=== PATIENT | male | born 1965 | race African-American/Black ===

== ENCOUNTER 2016-10-09 11:07 | Emergency (ER) | payer MEDICAID ==
[2016-10-09] MEDS ORDERED: diphenhydrAMINE HCL 50 MG/ML VIAL IV ONE ×2 (11:26→12:42)
[2016-10-09] MEDS ORDERED: NORMAL SALINE 1,000 ML IV ONE (11:26)
[2016-10-09] MEDS ORDERED: KETOROLAC TROMETHAMINE 30 MG/ML VIAL IV ONE (11:26)
[2016-10-09] MEDS ORDERED: METOPROLOL TARTRATE 1 MG/ML AMPUL IV ONE ×2 (11:27→11:32)
[2016-10-09] MEDS ORDERED: METOCLOPRAMIDE HCL 5 MG/ML VIAL IV ONE ×2 (11:27→12:42)
[2016-10-09] MEDS ORDERED: METOCLOPRAMIDE HCL 5 MG/ML VIAL ONE ×2 (11:32→12:48)
[2016-10-09] MEDS ORDERED: diphenhydrAMINE HCL 50 MG/ML VIAL ONE ×2 (11:32→12:47)
[2016-10-09] MEDS ORDERED: KETOROLAC TROMETHAMINE 30 MG/ML VIAL ONE (11:32)
--- NOTE | 2016-10-09 11:51 | ERNOTE ---
Medical Problem HPI - Narrative Date of Service: 10/09/16 - General Chief Complaint: General Assessment Time Seen by Provider: 10/09/16 11:18 Source: patient Exam Limitations: no limitations - Immun/Allergies/Home Medications Immunizations: IMMUNIZATION HX Immunizations Up to Date Yes History of Influenza Vaccine No Hx Pneumococcal Vaccination No Allergies/Adverse Reactions: Allergies Penicillins Allergy (Verified 10/09/16 11:16) Home Medications: HOME MEDICATIONS Amlodipine Besylate 10 mg PO DAILY 05/08/16 [Last Taken Unknown] Gabapentin [Neurontin] 600 mg PO QID 05/08/16 [Last Taken Unknown] Lisinopril [Zestril] 40 mg PO BID 05/08/16 [Last Taken Unknown] Simvastatin [Zocor] 40 mg PO HS 05/08/16 [Last Taken Unknown] Aspirin [Aspirin EC] 81 mg PO DAILY 10/09/16 [Last Taken Unknown] Ciprofloxacin HCl/Dexameth [Ciprodex Otic Suspension] 1 drop LEFT EAR QID #1 bottle 10/09/16 [Last Taken Unknown] - History of Present History Narrative: Pt. comes in with c/o L temporal and occipital headache that radiates from neck , L ear pain, dizziness, and blurred vision that worsens with pressure on his neck. Pt. denies any previous hx of head injury or migraines but does have a hx of HTN. Pt. denies any CP, NVD, SOB, recent illness, rhinorrhea, sore throat , fever, chills, alleviating factors, or prehospital treatment. Review of Systems - Review of Systems Constitutional: Present: no symptoms reported. Absent: fever, chills, weakness , fatigue, malaise EYE: Present: blurred vision, vision changes. Absent: double vision ENT: Present: ear pain - L. Absent: nose congestion, nasal drainage, sore throat Respiratory: Present: no symptoms reported. Absent: shortness of breath, cough , wheezing Cardiology: Present: no symptoms reported. Absent: chest pain, palpitations, edema Gastrointestinal/Abdominal: Present: no symptoms reported. Absent: nausea, vomiting, diarrhea Genitourinary: Present: no symptoms reported Musculoskeletal: Present: no symptoms reported. Absent: back pain, joint pain Skin: Present: no symptoms reported. Absent: rash, change in color Neurological: Present: headache, dizziness/light-headedness. Absent: weakness, numbness, tingling All Other Systems: All systems neg except as marked - Patient's Past Medical History Patient History - Medical: Chronic Pain Patient History - Cardiac/Respiratory: Hypertension Patient History - Cancer: No Hx of Cancer Patient History - Surgical Procedures: Back Surgery, Other - Social History Living Situations: home Psych History: No pertinent hx Smoking Status: Current every day smoker Alcohol Use: none Drug Use: none - Immunizations Immunizations Up to Date: Yes Hx Pneumococcal Vaccination: No History of Influenza Vaccine: No Physical Exam - Physical Exam General Appearance: Present: wd/wn, alert, no apparent distress Eye Exam: PERRL: bilateral, EOMI: bilateral, Sclera injection: bilateral Ears, Nose, Throat: Present: normal except -, abnormal TM (L) - eustacian tube edema and erythema unable to visualize TM, nasal congestion, normal pharynx Respiratory: Present: no respiratory distress, normal breath sounds, no accessory muscle use, chest nontender, lungs clear Cardiovascular/Chest: Present: regular rate, rhythm, no murmur, normal peripheral pulses Gastrointestinal/Abdominal: Present: normal bowel sounds, nontender, nondistended, soft, no organomegaly Back Exam: Present: normal inspection, normal range of motion, no CVA tenderness , no vertebral tenderness. Absent: decreased range of motion, muscle spasm Extremity Exam: Present: normal inspection, non-tender, normal range of motion, no edema Neurological Exam: Present: alert, oriented, normal mood/affect, no motor/ sensory deficits, stock checker II-XII nml as tested, normal cerebellar test Skin Exam: Present: normal color, warm/dry. Absent: pallor, skin rash ED Progress - Date and Time Seen: Date and Time: 10/09/16 12:56 Pt. sleeping comfortable but when awoken pt. states taht pain is 10/10 and not improved at this time. Pt. heart rate and blood pressure improved with treatment of pain at this time. Will attempt one more dose of pain medication to see if it changes pt. answer to pain level. 10/09/16 12:58 Feel that this could be migraine secondary to otitis externa 10/09/16 13:19 Pt. still states that pain is elevated and discussed with Dr Blanca and she recommends sending pt. home to take Ibuprofen and Tylenol for pain with benedryl and having him follow up with his PCP. - Results and Orders Patient's Lab Results:: I have reviewed the patient's lab results. - Vital Signs Patient's Vital Signs:: I have reviewed the patient's vital signs. Vital Signs: Vital Signs 10/09/16 11:11 Temperature 37.1 C Pulse Rate 108 H Respiratory 18 Rate Blood Pressure 181/104 O2 Sat by Pulse 99 Oximetry - EKG EKG: nonspecific ST T wave changes, other - Sinus rhythm no acute EKG read: Reviewed by me EKG Comments: Interpreted by Dr Blanca - X-Ray X-Ray #1 X-Ray: chest Interpretation: Reviewed by me X-ray Comments: no acute - CT/Ultrasound CT/Ultrasound Narrative: Head CT wityh out any acute intracranial pathology. - Progress/Reassessment Chief Complaint: General Assessment Departure - Departure Clinical Impression: Migraine Qualifiers: Migraine type: without aura Status migrainosus presence: without status migrainosus Intractability: intractable Qualified Code(s): G43.019 - Migraine without aura, intractable, without status migrainosus Otitis externa Qualifiers: Otitis externa type: unspecified type Laterality: left Chronicity: acute Qualified Code(s): H60.502 - Unspecified acute noninfective otitis externa, left ear Disposition: Home self-care Condition: Good Instructions: Otitis Externa, [id number], Recurrent Migraine Headache, Easy- to-Read Additional Instructions: Please take Tylenol and Ibuprofen every six hours for pain with 25mg benedryl. Please follow up with primary provider in 2-3 days. Prescriptions: Ciprofloxacin HCl/Dexameth [Ciprodex Otic Suspension] 1 drop LEFT EAR QID #1 bottle
[2016-10-09 11:56] LABS: Hematocrit 52.9 % (42.0-52.0); Mean Cell Volume 92.3 fl (78-100); Mean Corpuscular Hemoglobin 31.4 pg (27-31); Mean Platelet Volume 10.2 fl (6.0-9.5); Neutrophil # 5.1 K/mm3 (1.3-6.0); Neutrophil % 56.9 % (42-75.0); Platelet Count 232 K/mm3 (150-450); Red Blood Count 5.73 M/mm3 (4.7-6.0); Red Cell Distribution Width 13.2 % (11.5-14.0); White Blood Count 8.9 K/mm3 (4.0-10.5)
[2016-10-09 12:09] LABS: Urine Bilirubin Negative (NEGATIVE); Urine Ketone Negative (NEGATIVE); Urine Nitrite Negative (NEGATIVE); Urine Protein 15 mg/dL (NEGATIVE); Urine Specific Gravity 1.025 SP.GR. (1.005-1.030); Urine Urobilinogen Normal (NORMAL)
[2016-10-09 12:12] LABS: ALT 63 U/L (19-67); AST 46 U/L (0-48); Alkaline Phosphatase * 122 U/L (50-170); Anion Gap 15.2 mmol/L (6.8-13.8); BUN/Creatinine Ratio 8.4 (9.0-21.6); Bilirubin, Total 0.4 mg/dL (0.0-1.1); Blood Urea Nitrogen 9 mg/dL (6-23); Ca. Corrected For Albumin 8.8 mg/dL (8.4-10.2); Calcium * 9.1 mg/dL (7.9-10.9); Carbon Dioxide 25.2 mmol/L (24-32.6); Chloride 103 mmol/L (97-106); Glucose * 181 mg/dL (70-110); Potassium 3.4 mmol/L (3.4-4.6); Sodium 140 mmol/L (132-142); Total Protein 8.5 gm/dL (6.2-8.2)
[2016-10-09 12:16] LABS: Urine Appearance Clear; Urine Bacteria None Seen; Urine Blood 10 /ul (NEGATIVE); Urine Color Yellow; Urine RBC 0-5 /hpf (0-5); Urine WBC 0-5 /hpf (0-5)
[2016-10-09 12:38] LABS: Cocaine Ur Negative (NEGATIVE); Urine Barbiturate Negative (NEGATIVE); Urine Benzodiazepines Negative (NEGATIVE); Urine Opiates Negative (NEGATIVE); Urine PCP Negative (NEGATIVE); Urine THC Negative (NEGATIVE)
[2016-10-09] MEDS ORDERED: NALBUPHINE HCL 20 MG/ML AMPUL IV ONE (12:42)
[2016-10-09] MEDS ORDERED: NALBUPHINE HCL 20 MG/ML AMPUL ONE (12:48)
[2016-10-09 12:53] LABS: Hemoglobin A1C 5.9 % (4.00-6.0)
[2016-10-09 13:42] VITALS: BP 148/80
== END 2016-10-09 13:36 | disposition home or self-care (01) ==
LOC: ER 11:07
DX: G43.019 Migraine without aura, intractable, without status migrainosus (principal); H60.502 Unspecified acute noninfective otitis externa, left ear; Z72.0 Tobacco use; G89.29 Other chronic pain; I10 Essential (primary) hypertension
CPT/HCPCS: 36415; 70450; 71020; 80053; 80307; 81001; 83036; 85025; 93005; 96374; 96375; 99284; G0481

== ENCOUNTER 2016-11-15 08:33 | Inpatient (IN) | payer MEDICAID ==
--- NOTE | 2016-11-15 09:35 | ERNOTE ---
GI Bleeding/Rectal Pain ER Presenting Symptoms: dark/tarry stools Time Seen by Provider: 11/15/16 09:04 Source: patient Immunizations: IMMUNIZATION HX Immunizations Up to Date Yes History of Influenza Vaccine No Hx Pneumococcal Vaccination No Allergies/Adverse Reactions: Allergies Penicillins Allergy (Verified 11/15/16 09:19) Home Medications: HOME MEDICATIONS Amlodipine Besylate 10 mg PO DAILY 05/08/16 [Last Taken Unknown] Gabapentin [Neurontin] 600 mg PO QID 05/08/16 [Last Taken Unknown] Lisinopril [Zestril] 40 mg PO BID 05/08/16 [Last Taken Unknown] Simvastatin [Zocor] 40 mg PO HS 05/08/16 [Last Taken Unknown] Aspirin [Aspirin EC] 81 mg PO DAILY 10/09/16 [Last Taken Unknown] Narrative: Patient states that 3 days ago he started to develop black tarry stools. Actually one day or so ago he started developing epigastric abdominal pain and now has black loose stools. Patient now complains of moderate to severe epigastric abdominal pain and continues to have black tarry stools. Timing: intermittent Quality/Severity: Present: moderate Nausea/Vomiting: Present: none Abdominal Pain: Present: epigastric Associated Symptoms: Reports: black stools, tarry stools Review of Systems - Review of Systems Constitutional: Present: See HPI EYE: Present: no symptoms reported ENT: Present: no symptoms reported Respiratory: Present: no symptoms reported Cardiology: Present: no symptoms reported Gastrointestinal/Abdominal: Present: diarrhea, abdominal pain Genitourinary: Present: no symptoms reported Musculoskeletal: Present: no symptoms reported Skin: Present: no symptoms reported Neurological: Present: no symptoms reported Endocrine: Present: no symptoms reported Hematologic/Lymphatic: Present: no symptoms reported Psych: Present: no symptoms reported - Patient's Past Medical History Patient History - Medical: Chronic Pain Patient History - Cardiac/Respiratory: COPD, Hypertension, Hyperlipidemia Patient History - Cancer: No Hx of Cancer Patient History - Surgical Procedures: Back Surgery, Other Patient History - Other: None - Social History Living Situations: home Psych History: No pertinent hx Smoking Status: Current every day smoker Have you smoked in the past 12 months: Yes Alcohol Use: none Drug Use: none - Immunizations Immunizations Up to Date: Yes Hx Pneumococcal Vaccination: No History of Influenza Vaccine: No Physical Exam - Physical Exam General Appearance: Present: wd/wn, alert, moderate distress Eye Exam: Normal inspection: bilateral, PERRL: bilateral Ears, Nose, Throat: Present: normal ENT inspection, H, normal pharynx Neck: Present: normal inspection, nontender Respiratory: Present: no respiratory distress, normal breath sounds, no accessory muscle use, chest nontender, lungs clear Cardiovascular/Chest: Present: regular rate, rhythm, no murmur, normal peripheral pulses Gastrointestinal/Abdominal: Present: normal bowel sounds, nondistended, soft, tenderness Rectal Exam: Present: deferred Back Exam: Present: normal inspection, normal range of motion Extremity Exam: Present: normal inspection, non-tender, no edema, normal range of motion Neurological Exam: Present: alert, oriented, normal mood/affect Skin Exam: Present: normal color, warm/dry Lymphatic Exam: Present: no adenopathy ED Progress - Results and Orders Patient's Lab Results:: I have reviewed the patient's lab results. - Vital Signs Patient's Vital Signs:: I have reviewed the patient's vital signs. Vital Signs: Vital Signs 11/15/16 11/15/16 09:14 09:26 Temperature 37.1 C Pulse Rate 111 H 95 Respiratory 20 18 Rate Blood Pressure 122/91 148/86 O2 Sat by Pulse 100 100 Oximetry - X-Ray X-Ray #1 X-Ray: abdomen Interpretation: Reviewed by me - Progress/Reassessment Chief Complaint: GI Bleed Progress Note-Subjective: 11/15/16 11:40 Pt had a differential diagnosis of PUD, Acute gastritis, Duodenal ulcer, GERD - Transfer of Care Expected Disposition: Admit Plan - Plan Plan: Patient will be taken directly from the ER to the OR for an EGD and probable cauterization of a gastric ulcer. As the patient has lost over 30 that is blood in just 1 month 2 units of packed red blood cells will be given to him as well as Protonix bolus and a Protonix push. Discussed the case with both Dr. Selby and Dr. De Leon and patient will likely need to be cauterized and they have agreed to undertake this procedure. Patient will then be taken to the ICU from the OR and monitored for any possible further drop in hemoglobin. Patient will be admitted to Dr. Myrtle Gaona and Dr. De Leon consult for surgical consideration. Departure Clinical Impression: GI bleed - Departure Disposition: [facility] Condition: Critical - Critical Care Total Time (mins): 50 Critical Care: Patient required 2 units of packed red blood cells while in the ED as well as Protonix bolus and a Protonix drip. Patient will go from the ER to the OR for probable cauterization of a gastric ulcer.
[2016-11-15 09:45] LABS: Hematocrit 34.6 % (42.0-52.0); Hemoglobin 11.6 gm/dL (13.5-18.0); Mean Cell Volume 93.5 fl (78-100); Mean Corpuscular Hemoglobin 31.4 pg (27-31); Mean Corpuscular Hgb Conc 33.5 g/dl (32-36); Mean Platelet Volume 10.9 fl (6.0-9.5); Neutrophil # 7.7 K/mm3 (1.3-6.0); Neutrophil % 65.8 % (42-75.0); Platelet Count 184 K/mm3 (150-450); Red Cell Distribution Width 13.6 % (11.5-14.0); White Blood Count 11.7 K/mm3 (4.0-10.5)
[2016-11-15 09:53] LABS: INR 1.05 INR (0.90-1.10); Partial Thrombolplastin Time 24.7 Seconds (24-32); Prothrombin Time (Patient) 10.9 Seconds (9.4-11.4)
[2016-11-15 09:56] LABS: Albumin * 3.3 gm/dl (3.4-5.0); Anion Gap 14.4 mmol/L (6.8-13.8); BUN/Creatinine Ratio 33.3 (9.0-21.6); Bilirubin, Total 0.5 mg/dL (0.0-1.1); Ca. Corrected For Albumin 8.6 mg/dL (8.4-10.2); Calcium * 8.4 mg/dL (7.9-10.9); Carbon Dioxide 23.8 mmol/L (24-32.6); Potassium 4.2 mmol/L (3.4-4.6); Total Protein 6.7 gm/dL (6.2-8.2)
[2016-11-15] MEDS ORDERED: PANTOPRAZOLE SODIUM 80 MG in NORMAL SALINE 100 ML IV ONE ×2 (10:48→10:53)
[2016-11-15] MEDS: PANTOPRAZOLE SODIUM 40 MG in NORMAL SALINE 100 ML IV SCH ×4 (12:01→21:59)
--- NOTE | 2016-11-15 12:02 | CONS ---
[facility] - General Date of Service: 11/15/16 Narrative: 51 year old black male presents with black tarry stools since friday. He previously had a hemoglobin of 18 and it is now 11. He is hemodynamically stable. He takes NSAIDS. Blood has been ordered in the ER and a protonix drip is started. He complains of epigastric discomfort. He tried to drink some water this morning and threw it up. Source: patient, RN/MD Exam Limitations: no limitations - History of Present Illness Allergies/Adverse Reactions: Allergies Penicillins Allergy (Verified 11/15/16 09:19) Home Medications: Home Medications Medication Instructions Recorded Last Taken Amlodipine Besylate 10 mg PO DAILY 05/08/16 Unknown Gabapentin [Neurontin] 600 mg PO QID 05/08/16 Unknown Lisinopril [Zestril] 40 mg PO BID 05/08/16 Unknown Simvastatin [Zocor] 40 mg PO HS 05/08/16 Unknown Aspirin [Aspirin EC] 81 mg PO DAILY 10/09/16 Unknown - Patient's Past Medical History Patient History - Medical: Chronic Pain Patient History - Cardiac/Respiratory: COPD, Hypertension, Hyperlipidemia Patient History - Cancer: No Hx of Cancer Patient History - Surgical Procedures: Back Surgery, Other Patient History - Other: None - Social History Living Situations: home Psych History: No pertinent hx Smoking Status: Current every day smoker Have you smoked in the past 12 months: Yes Alcohol Use: none Drug Use: none - Immunizations Immunizations Up to Date: Yes Hx Pneumococcal Vaccination: No History of Influenza Vaccine: No Review of Systems - Review of Systems Abdominal: Present: Abdominal Pain - epigastric Misc: All systems neg except as marked Physical Examination - Exam Vital Signs: Vital Signs - Last Taken Temp 37.1 C 11/15/16 09:14 Pulse 88 11/15/16 11:07 Resp 14 11/15/16 11:07 BP 138/83 11/15/16 11:07 Pulse Ox 97 11/15/16 11:07 Constitutional: Present: Alert, Oriented x3, Cooperative, Well developed, Well nourished, No distress ENT Exam: Present: normal ENT inspection Eye Exam: bilateral eye: normal inspection Neck: Present: non-tender, normal inspection, trachea midline Respiratory: Present: lungs clear, normal breath sounds, no respiratory distress Cardiovascular/Chest: Present: regular rate, rhythm, no murmur Abdomen: Present: Normal bowel sounds, soft, nondistended, no hepatospenomegaly , no masses, tender - Asin epigastrium Extremity: Present: normal inspection Skin Exam: Present: warm/dry Neurologic: Present: no motor/sensory deficits - Assessments/Findings (1) GI bleed Diagnosis(s): Suspect this to be an upper GI bleed and recommend EGD. The options, risks, and benefits were reviewed with the patient. He seems to understand, asks appropriate questions, and desires to proceed. Problem: Acute Qualifiers: GI bleed type/associated pathology: gastric ulcer Qualified Code(s): K25.4 - Chronic or unspecified gastric ulcer with hemorrhage
[2016-11-15] MEDS ORDERED: RINGERS SOLUTION,LACTATED 1,000 ML IV ONE (12:20)
[2016-11-15 12:42] LABS: Urine Appearance Clear; Urine Bacteria TRACE; Urine Bilirubin Negative (NEGATIVE); Urine Blood Negative /ul (NEGATIVE); Urine Color Yellow; Urine Ketone Negative (NEGATIVE); Urine Nitrite Negative (NEGATIVE); Urine Protein Negative (NEGATIVE); Urine RBC None Seen /hpf (0-5); Urine Urobilinogen Normal (NORMAL); Urine WBC None Seen /hpf (0-5)
--- NOTE | 2016-11-15 13:01 | OR ---
Operative Report - Dictated Report Narrative: Date: 11/15/2016 Preoperative diagnosis: Epigastric pain, melena, decreasing hemoglobin Postoperative diagnosis: Gastritis, gastric bleeding greater curvature Procedure: EGD with biopsy Staff surgeon: Raphael De Leon MD Proctoring surgeon: Roly Selby MD Anesthesia Mac per [employer] EBL: Minimal Specimen: Biopsy for CLOtest Description: After informed consent to bite-block was inserted and IV sedation was administered P's per [employer]. Flexible video endoscope was inserted through the bite bite block through the posterior pharynx and into the esophagus under direct vision the scope was advanced through the esophagus stomach and into the duodenum. The duodenum was grossly normal without ulceration. The scope was withdrawn into the stomach revealing gastritis. Retroflex view demonstrated a clot near the GE junction on the greater curvature there is no active bleeding that was seen. Biopsy of the antrum was taken for CLOtest. The endoscope was withdrawn into the distal esophagus and no wound abnormalities were seen. The remainder of the esophagus was unremarkable. The patient tolerated the procedure well and was discharged from the endoscopy suite in stable condition. Recommendations: Acid suppression. Refrain from smoking. Monitor for ongoing bleeding.
[2016-11-15] MEDS ORDERED: NORMAL SALINE 1,000 ML IV PRN (13:55)
[2016-11-15] MEDS: ONDANSETRON HCL/PF 2 MG/ML VIAL IV SCH ×3 (17:39→21:04)
--- NOTE | 2016-11-15 18:23 | HP ---
Chief Complaint - Chief Complaint Date of Service: 11/15/16 Time of Service: 18:30 Chief Complaint: Black tarry stools History of Present Illness: This is a 51 year old man who came to the [facility] ER with a complaint of black tarry stools which began in the evening 3 days ago. He had another one two days ago, the again this morning at two or three. This morning it was dark, tarry and loose. He reports mid-epigastric pain. We obtained an EKG once he arrived in the ER. Labs were also obtained. Xrays were obtained. Occult stool sent, which was positive for blood. He had a loose stool in the ER. It appeared black and smelled bloody. He was assisted back into bed. Telemetry showed NSR to Sinus tach with HR in the 90's-100's in the ER. He was taken to the OR, where endoscopy showed a clot adherent to the GE junction. He tends to use lots of NSAIDs. Laboratory Tests 10/09/16 11/15/16 11:40 09:35 Hgb 18.0 11.6 L - Patient's Past Medical History Patient History - Medical: Chronic Pain Patient History - Cardiac/Respiratory: COPD, Hypertension, Hyperlipidemia Patient History - Cancer: No Hx of Cancer Patient History - Surgical Procedures: Back Surgery, Other Patient History - Other: None - Family History Father Family History - Medical: , History Unknown, Diabetes Type 2 Insulin Dependent Family History - Cardiac/Respiratory: History Unknown, Hypertension Family History - Cancer: No pertinent family hx, History Unknown Mother Family History - Medical: No pertinent hx, Diabetes Type 2 Insulin Dependent Family History - Cardiac/Respiratory: No pertinent hx, History Unknown Family History - Cancer: No pertinent family hx - Social History Living Situations: home Psych History: No pertinent hx Smoking Status: Current every day smoker Have you smoked in the past 12 months: Yes Do you dip or chew tobacco: No Patient requests Smoking Cessation Consult: No Initiate information on Smoking Cessation: No Alcohol Use: none Drug Use: none - Immunizations Immunizations Up to Date: Yes Hx Pneumococcal Vaccination: No History of Influenza Vaccine: No Review Of Systems (GEN) - Review of Systems Generalized/Overall Review: Present: Malaise EENTM: Present: No Symptoms Reported Respiratory: Present: No Symptoms Reported Cardiac: Present: No Symptoms Reported Abdominal: Present: Vomiting - upon returning to the floor from endoscopy, vomited 400 ml of bright red blood X1, Abdominal Pain Genitourinary: Present: No Symptoms Reported Musculoskeletal: Present: Joint Pain Neurological: Present: No Symptoms Reported Skin: Present: No Symptoms Reported Endocrine: Present: No Symptoms Reported Misc: All systems neg except as marked Immunizations: IMMUNIZATION HX Immunizations Up to Date Yes History of Influenza Vaccine No Hx Pneumococcal Vaccination No Allergies/Adverse Reactions: Allergies Allergy/AdvReac Type Severity Reaction Status Date / Time Penicillins Allergy Verified 11/15/16 14:58 Home Medications: HOME MEDICATIONS Amlodipine Besylate 10 mg PO DAILY 05/08/16 [Last Taken Unknown] Gabapentin [Neurontin] 600 mg PO QID 05/08/16 [Last Taken Unknown] Lisinopril [Zestril] 40 mg PO BID 05/08/16 [Last Taken Unknown] Simvastatin [Zocor] 40 mg PO HS 05/08/16 [Last Taken Unknown] Aspirin [Aspirin EC] 81 mg PO DAILY 10/09/16 [Last Taken Unknown] Cyclobenzaprine HCl [Flexeril] 10 mg PO TID PRN 11/15/16 [Last Taken Unknown] Exam - Exam Vital Signs: Vital Signs - Last Taken Selected Entries 11/15/16 18:18 Temperature 37.7 C H Temperature Temporal Artery Source Scan Pulse Rate 96 Respiratory 18 Rate Respiratory Normal Depth Respiratory Normal Effort Non-Labored Respiratory Normal Pattern Blood Pressure 142/81 Blood Pressure Supine Position O2 Sat by Pulse 98 Oximetry Oxygen Delivery Room Air Method Constitutional: Present: Alert, Oriented x3, Cooperative, Well developed, Well nourished, No distress ENT Exam: Present: normal ENT inspection, hearing grossly normal Eye Exam: bilateral eye: normal inspection, PERRL, EOMI Neck: Present: normal inspection Back Exam: Present: normal inspection Respiratory: Present: normal breath sounds, no respiratory distress Cardiovascular/Chest: Present: normal peripheral pulses, regular rate, rhythm, no chest tenderness Abdomen: Present: Normal bowel sounds, soft, nondistended, no rebound tenderness , no hepatospenomegaly, no masses, tender - epigastrium Extremity: Present: non-tender, no pedal edema Skin Exam: Present: normal color, warm/dry, no cyanosis Neurologic: Present: alert, oriented x 3 Appearance: Present: appropriate appearance, appropriate insight, neat, no memory impairment Eye contact: Present: cooperative, good eye contact, normal speech Thoughts: Present: normal thought pattern Diagnostic Studies: Laboratory Results WBC 11.7 K/mm3 (4.0-10.5) H 11/15/16 09:35 RBC 3.70 M/mm3 (4.7-6.0) L 11/15/16 09:35 Hgb 11.6 gm/dL (13.5-18.0) L 11/15/16 09:35 Hct 34.6 % (42.0-52.0) L 11/15/16 09:35 MCV 93.5 fl (78-100) 11/15/16 09:35 MCH 31.4 pg (27-31) H 11/15/16 09:35 MCHC 33.5 g/dl (32-36) 11/15/16 09:35 RDW 13.6 % (11.5-14.0) 11/15/16 09:35 Plt Count 184 K/mm3 (150-450) 11/15/16 09:35 MPV 10.9 fl (6.0-9.5) H 11/15/16 09:35 Immature Gran % (Auto) 0.50 % (0.001-0.429) H 11/15/16 09:35 Immature Gran # (Auto) 0.06 K/mm3 (0.000-0.0310) H 11/15/16 09:35 Neutrophils % 65.8 % (42-75.0) 11/15/16 09:35 Lymphocytes % 22.8 % (20-51) 11/15/16 09:35 Monocytes % 9.1 % (0.0-9) H 11/15/16 09:35 Eosinophils % 1.4 % (0.0-3.0) 11/15/16 09:35 Basophils % 0.4 % (0.0-1.0) 11/15/16 09:35 Nucleated RBC % 0.0 k/mm3 (0-1) 11/15/16 09:35 Neutrophils # 7.7 K/mm3 (1.3-6.0) H 11/15/16 09:35 Lymphocytes # 2.7 k/mm3 (1.5-3.5) 11/15/16 09:35 Monocytes # 1.1 k/mm3 (0.0-1.0) H 11/15/16 09:35 Eosinophils # 0.2 k/mm3 (0.0-0.7) 11/15/16 09:35 Absolute Basophils 0.1 k/mm3 (0.0-0.1) 11/15/16 09:35 PT 10.9 Seconds (9.4-11.4) 11/15/16 09:35 INR (Anticoag Therapy) 1.05 INR (0.90-1.10) 11/15/16 09:35 PTT ([place]) 24.7 Seconds (24-32) 11/15/16 09:35 Sodium 142 mmol/L (132-142) 11/15/16 09:35 Plasma Sodium 142 mmol/L (130-142) 11/15/16 09:35 Potassium 4.2 mmol/L (3.4-4.6) D 11/15/16 09:35 Chloride 108 mmol/L (97-106) H 11/15/16 09:35 Carbon Dioxide 23.8 mmol/L (24-32.6) L 11/15/16 09:35 Anion Gap 14.4 mmol/L (6.8-13.8) H 11/15/16 09:35 BUN 35 mg/dL (6-23) H D 11/15/16 09:35 Creatinine 1.05 mg/dL (0.4-1.4) 11/15/16 09:35 Est GFR (Non-Af Amer) 95 mL/min (60-130) 11/15/16 09:35 BUN/Creatinine Ratio 33.3 (9.0-21.6) H 11/15/16 09:35 Random Glucose 122 mg/dL (70-110) H 11/15/16 09:35 Calcium 8.4 mg/dL (7.9-10.9) 11/15/16 09:35 Calcium Adj for Albumin 8.6 mg/dL (8.4-10.2) 11/15/16 09:35 Total Bilirubin 0.5 mg/dL (0.0-1.1) 11/15/16 09:35 AST 24 U/L (0-48) 11/15/16 09:35 ALT 52 U/L (19-67) 11/15/16 09:35 Alkaline Phosphatase 87 U/L (50-170) 11/15/16 09:35 Total Protein 6.7 gm/dL (6.2-8.2) 11/15/16 09:35 Albumin 3.3 gm/dl (3.4-5.0) L 11/15/16 09:35 Urine Color Yellow 11/15/16 12:20 Urine Appearance Clear 11/15/16 12:20 Urine pH 6.0 pH (5.0-7.0) 11/15/16 12:20 Ur Specific [place] 1.010 SP.GR. (1.005-1.030) 11/15/16 12:20 Urine Protein Negative mg/dL (NEGATIVE) 11/15/16 12:20 Urine Glucose (UA) Negative mg/dL (NEGATIVE) 11/15/16 12:20 Urine Ketones Negative mg/dL (NEGATIVE) 11/15/16 12:20 Urine Blood Negative /ul (NEGATIVE) 11/15/16 12:20 Urine Nitrate Negative (NEGATIVE) 11/15/16 12:20 Urine Bilirubin Negative mg/dl (NEGATIVE) 11/15/16 12:20 Urine Urobilinogen Normal EU/dl (NORMAL) 11/15/16 12:20 Ur Leukocyte Esterase Negative /ul (NEGATIVE) 11/15/16 12:20 Urine RBC None seen /hpf (0-5) 11/15/16 12:20 Urine WBC None seen /hpf (0-5) 11/15/16 12:20 Ur Epithelial Cells Trace /hpf (0-5) 11/15/16 12:20 Urine Bacteria Trace (NONE) 11/15/16 12:20 Urine Culture Comments No culture indicated 11/15/16 12:20 Stool Occult Blood Positive H 11/15/16 10:39 Blood Type A Positive 11/15/16 09:35 Antibody Screen Negative 11/15/16 09:35 Crossmatch See Detail 11/15/16 09:35 Assessment/Plan - Assessment/Plan (1) GI bleed Assessment: protonix, avoid NSAID, gi bleeding protocol, FFP, blood, PPI. HOSPITAL STAY OF 1-2 days. Problem: Acute Qualifiers: GI bleed type/associated pathology: gastric ulcer Qualified Code(s): K25.4 - Chronic or unspecified gastric ulcer with hemorrhage (2) Back pain Problem: Acute Qualifiers: Back pain location: low back pain Chronicity: chronic Back pain laterality: unspecified Sciatica presence: unspecified whether sciatica present Qualified Code(s): M54.5 - Low back pain; G89.29 - Other chronic pain (3) Cervical radiculopathy at C6 Problem: Acute (4) Chronic high back pain Problem: Acute (5) Migraine Problem: Acute Qualifiers: Migraine type: without aura Status migrainosus presence: without status migrainosus Intractability: intractable Qualified Code(s): G43.019 - Migraine without aura, intractable, without status migrainosus
[2016-11-15] MEDS ORDERED: ACETAMINOPHEN 325 MG TABLET PO PRN (18:25)
[2016-11-15] MEDS ORDERED: LISINOPRIL 10 MG TABLET ONE (20:53)
[2016-11-15] MEDS: SIMVASTATIN 40 MG TABLET PO SCH (20:54)
[2016-11-15] MEDS: LISINOPRIL 40 MG TABLET PO SCH (20:55)
[2016-11-15] MEDS: HYDROcodone/ACETAMINOPHEN 1 EACH TABLET PO SCH (20:55)
[2016-11-15 22:47] LABS: Hematocrit 31.4 % (42.0-52.0); Hemoglobin 10.7 gm/dL (13.5-18.0)
[2016-11-16] MEDS: PANTOPRAZOLE SODIUM 40 MG in NORMAL SALINE 100 ML IV SCH ×2 (02:35→07:45)
[2016-11-16] MEDS: ONDANSETRON HCL/PF 2 MG/ML VIAL IV SCH ×6 (02:36→21:14)
[2016-11-16] MEDS: HYDROcodone/ACETAMINOPHEN 1 EACH TABLET PO SCH ×4 (02:37→15:55)
[2016-11-16 04:03] LABS: Hematocrit 29.8 % (42.0-52.0); Hemoglobin 10.1 gm/dL (13.5-18.0)
[2016-11-16 04:11] LABS: Anion Gap 14.4 mmol/L (6.8-13.8); Calcium * 7.8 mg/dL (7.9-10.9); Estimated Creat Clear 92.3; Potassium 3.4 mmol/L (3.4-4.6)
[2016-11-16] MEDS: 0.5 NORMAL SALINE 1,000 ML IV PRN ×3 (05:17→21:16)
--- NOTE | 2016-11-16 05:49 | PN ---
<Sharon Caldera - Last Filed: 11/16/16 05:23> Subjective - Date and Time Seen Date: 11/16/16 Time: 05:23 Subjective Narrative: states abdominal pain much improved. c/o intermittent nausea. denies any vomiting. wants to eat. tolerating ice chips. Objective - Review of Systems Generalized/Overall Review: Reports: No Symptoms Reported EENTM: Reports: No Symptoms Reported Respiratory: Reports: No Symptoms Reported Cardiac: Reports: No Symptoms Reported Abdominal: Reports: Nausea, Abdominal Pain - much improved from yesterday. Denies: Vomiting Genitourinary Symptoms: Reports: No Symptoms Reported Musculoskeletal Complaints: Reports: Back Pain Neurological: Reports: No Symptoms Reported Skin: Reports: No Symptoms Reported Endocrine: Reports: No Symptoms Reported Misc: All systems neg except as marked - Vitals Vitals: Last Vital Signs Temp 37.0 C 11/16/16 02:30 Pulse 83 11/16/16 05:13 Resp 16 11/16/16 02:30 BP 151/89 11/16/16 02:30 Pulse Ox 100 11/16/16 02:30 - Abnormal Lab Findings Abnormal Lab Findings: Abnormal Lab Results 11/15/16 11/16/16 11/16/16 Range/Units 22:40 04:00 04:00 Hgb 10.7 L 10.1 L (13.5-18.0) gm/dL Hct 31.4 L 29.8 L (42.0-52.0) % Sodium 145 H (132-142) mmol/L Plasma Sodium 145 H (130-142) mmol/L Chloride 110 H (97-106) mmol/L Anion Gap 14.4 H (6.8-13.8) mmol/L BUN 29 H (6-23) mg/dL BUN/Creatinine Ratio 24.0 H (9.0-21.6) Random Glucose 124 H (70-110) mg/dL Calcium 7.8 L (7.9-10.9) mg/dL - Exam Constitutional: Present: Alert, Cooperative, No distress ENT Exam: Present: hearing grossly normal Neck: Present: full range of motion, supple Breasts: Present: Exam deferred Respiratory: Present: chest non-tender, lungs clear, normal breath sounds, no respiratory distress Cardiovascular/Chest: Present: normal peripheral pulses, regular rate, rhythm, no chest tenderness Abdomen: Present: soft, nondistended, tender - very mild diffuse tenderness to palpation, high pitched bowel sounds - hyperactive bowel sounds throughout. Absent: guarding, rigidity /Rectal: Present: Exam deferred Extremity: Present: non-tender, normal inspection Skin Exam: Present: normal color, warm/dry, no cyanosis Assessment/Plan Plan Narrative: GI bleed - due to excessive ibuprofen use outpatient - EGD 11/15/16 - POD #1 - clot found to ge junction - protinix 40 mg iv q 12 hours - vomitted blood yesterday 11/15/16 - 2 units PRBCs given with FFP. - abdominal pain much improved per patient - still with intermittent nausea - bowel sounds hyperactive this am - ? still need additional bowel rest today - currently NPO with ice chips - hgb stable overnight, no active bleed Chronic back pain / chronic pain - took excessive ibuprofen due to out of norco tabs for chronic back pain - restarted on home dose of norco tabs yesterday 11/15/16 - refer to pain clinic in [place] outpatient. Code status: Full Code VTE: no pharmalogical due to gi bleed; SCDs while in bed. GI Proph: Protonix iv q 12 hours. - Problems/Diagnosis (1) GI bleed Problem: Acute QualifierTitle: GI bleed type/associated pathology: gastric ulcer Qualified Code(s): K25.4 - Chronic or unspecified gastric ulcer with hemorrhage (2) Back pain Problem: Acute QualifierTitle: Back pain location: low back pain Chronicity: chronic Back pain laterality: unspecified Sciatica presence: unspecified whether sciatica present Qualified Code(s): M54.5 - Low back pain; G89.29 - Other chronic pain (3) Cervical radiculopathy at C6 Problem: Acute (4) Chronic high back pain Problem: Acute (5) Migraine Problem: Acute QualifierTitle: Migraine type: without aura Status migrainosus presence: without status migrainosus Intractability: intractable Qualified Code(s): G43.019 - Migraine without aura, intractable, without status migrainosus <Horace Maldonado - Last Filed: 11/16/16 12:25> Subjective Subjective Narrative: Vomited two times, small amounts, bright red blood this am. Very anxious about bleeding to . I gave him small amount of phenergan and a small amount of ativan, and now he is oversedated. I have markedly backed off the doses and made both prn only. I spoke with Dr. De Leon, he will apply surgery if he start vigourous bleeding, otherwise, he is Helicobacter positive. Will treat. Needs to stay at least till Friday or Friday. Objective - Vitals Vitals: Last Vital Signs Temp 36.8 C 11/16/16 10:31 Pulse 75 11/16/16 10:31 Resp 18 11/16/16 10:31 BP 124/84 11/16/16 10:31 Pulse Ox 94 11/16/16 10:31 - Abnormal Lab Findings Abnormal Lab Findings: Abnormal Lab Results 11/15/16 11/16/16 11/16/16 Range/Units 22:40 04:00 04:00 Hgb 10.7 L 10.1 L (13.5-18.0) gm/dL Hct 31.4 L 29.8 L (42.0-52.0) % Sodium 145 H (132-142) mmol/L Plasma Sodium 145 H (130-142) mmol/L Chloride 110 H (97-106) mmol/L Anion Gap 14.4 H (6.8-13.8) mmol/L BUN 29 H (6-23) mg/dL BUN/Creatinine Ratio 24.0 H (9.0-21.6) Random Glucose 124 H (70-110) mg/dL Calcium 7.8 L (7.9-10.9) mg/dL 11/16/16 Range/Units 08:54 Hgb 10.6 L (13.5-18.0) gm/dL Hct 31.2 L (42.0-52.0) % Sodium (132-142) mmol/L Plasma Sodium (130-142) mmol/L Chloride (97-106) mmol/L Anion Gap (6.8-13.8) mmol/L BUN (6-23) mg/dL BUN/Creatinine Ratio (9.0-21.6) Random Glucose (70-110) mg/dL Calcium (7.9-10.9) mg/dL Assessment/Plan Plan Narrative: Treat triple, helicobacter. Monitor carefully. 4 units blood on hold. - Problems/Diagnosis (1) GI bleed Problem: Acute Qualifiers: GI bleed type/associated pathology: gastric ulcer Qualified Code(s): K25.4 - Chronic or unspecified gastric ulcer with hemorrhage (2) Back pain Problem: Acute Qualifiers: Back pain location: low back pain Chronicity: chronic Back pain laterality: unspecified Sciatica presence: unspecified whether sciatica present Qualified Code(s): M54.5 - Low back pain; G89.29 - Other chronic pain (3) Cervical radiculopathy at C6 Problem: Acute (4) Chronic high back pain Problem: Acute (5) Migraine Problem: Acute Qualifiers: Migraine type: without aura Status migrainosus presence: without status migrainosus Intractability: intractable Qualified Code(s): G43.019 - Migraine without aura, intractable, without status migrainosus (6) Anxiety about health Problem: Acute (7) Sedated due to medication Problem: Acute (8) Helicobacter positive gastritis Problem: Acute
[2016-11-16] MEDS ORDERED: PROMETHAZINE HCL 12.5 MG in DEXTROSE 5 % IN WATER 50 ML IV ONE ×2 (08:45)
[2016-11-16 08:59] LABS: Hematocrit 31.2 % (42.0-52.0); Hemoglobin 10.6 gm/dL (13.5-18.0)
[2016-11-16] MEDS ORDERED: LORazepam 0.5 MG TABLET PO STA (09:03)
[2016-11-16] MEDS ORDERED: PROMETHAZINE HCL 12.5 MG in DEXTROSE 5 % IN WATER 50 ML IV PRN ×2 (09:07)
[2016-11-16] MEDS: LISINOPRIL 40 MG TABLET PO SCH ×2 (09:25→21:13)
[2016-11-16] MEDS: amLODIPine BESYLATE 10 MG TABLET PO SCH (09:25)
[2016-11-16] MEDS ORDERED: LORazepam 0.5 MG TABLET PO PRN (10:05)
[2016-11-16] MEDS ORDERED: WATER IV PRN ×2 (10:06)
[2016-11-16] MEDS ORDERED: PROMETHAZINE HCL IV PRN ×2 (10:06)
[2016-11-16] MEDS ORDERED: DEXTROSE 5% IV PRN ×2 (10:06)
--- NOTE | 2016-11-16 11:01 | PN ---
Subjective - Date and Time Seen Date: 11/16/16 Time: 10:58 Subjective Narrative: States feeling better today. Objective Objective Narrative: Small bloody emesis x 2 by report Hgb stable VSS - Vitals Vitals: Last Vital Signs Temp 36.8 C 11/16/16 10:31 Pulse 75 11/16/16 10:31 Resp 18 11/16/16 10:31 BP 124/84 11/16/16 10:31 Pulse Ox 94 11/16/16 10:31 - Abnormal Lab Findings Abnormal Lab Findings: Abnormal Lab Results 11/15/16 11/16/16 11/16/16 Range/Units 22:40 04:00 04:00 Hgb 10.7 L 10.1 L (13.5-18.0) gm/dL Hct 31.4 L 29.8 L (42.0-52.0) % Sodium 145 H (132-142) mmol/L Plasma Sodium 145 H (130-142) mmol/L Chloride 110 H (97-106) mmol/L Anion Gap 14.4 H (6.8-13.8) mmol/L BUN 29 H (6-23) mg/dL BUN/Creatinine Ratio 24.0 H (9.0-21.6) Random Glucose 124 H (70-110) mg/dL Calcium 7.8 L (7.9-10.9) mg/dL 11/16/16 Range/Units 08:54 Hgb 10.6 L (13.5-18.0) gm/dL Hct 31.2 L (42.0-52.0) % Sodium (132-142) mmol/L Plasma Sodium (130-142) mmol/L Chloride (97-106) mmol/L Anion Gap (6.8-13.8) mmol/L BUN (6-23) mg/dL BUN/Creatinine Ratio (9.0-21.6) Random Glucose (70-110) mg/dL Calcium (7.9-10.9) mg/dL Assessment/Plan Plan Narrative: Case d/w Dr. Maldonado and positive CLOtest relayed. Will be available for clinically significant rebleed. - Problems/Diagnosis (1) GI bleed Problem: Acute Qualifiers: GI bleed type/associated pathology: gastric ulcer Qualified Code(s): K25.4 - Chronic or unspecified gastric ulcer with hemorrhage
[2016-11-16] MEDS: metroNIDAZOLE 500 MG TABLET PO SCH ×2 (13:11→17:44)
[2016-11-16 14:58] LABS: Hematocrit 29.8 % (42.0-52.0); Hemoglobin 10.2 gm/dL (13.5-18.0)
[2016-11-16] MEDS ORDERED: LORazepam 0.5 MG TABLET PO SCH (17:15)
[2016-11-16 21:01] LABS: Hematocrit 29.5 % (42.0-52.0)
[2016-11-16] MEDS: PANTOPRAZOLE SODIUM 40 MG TABLET.EC PO SCH (21:12)
[2016-11-16] MEDS: SIMVASTATIN 40 MG TABLET PO SCH (21:12)
[2016-11-16] MEDS: CLARITHROMYCIN 500 MG TABLET PO SCH (21:13)
[2016-11-17] MEDS: ONDANSETRON HCL/PF 2 MG/ML VIAL IV SCH ×6 (02:21→21:19)
[2016-11-17 03:45] LABS: Hematocrit 26.7 % (42.0-52.0)
[2016-11-17 03:52] LABS: Anion Gap 11.1 mmol/L (6.8-13.8); BUN/Creatinine Ratio 18.9 (9.0-21.6); Carbon Dioxide 27.4 mmol/L (24-32.6); Estimated Creat Clear 105.4; Potassium 3.5 mmol/L (3.4-4.6)
[2016-11-17] MEDS: 0.5 NORMAL SALINE 1,000 ML IV PRN (05:24)
[2016-11-17] MEDS: PANTOPRAZOLE SODIUM 40 MG TABLET.EC PO SCH ×2 (08:23→21:19)
[2016-11-17] MEDS: LISINOPRIL 40 MG TABLET PO SCH ×2 (08:23→21:18)
[2016-11-17] MEDS: metroNIDAZOLE 500 MG TABLET PO SCH ×3 (08:23→17:38)
[2016-11-17] MEDS: amLODIPine BESYLATE 10 MG TABLET PO SCH (08:23)
[2016-11-17] MEDS: CLARITHROMYCIN 500 MG TABLET PO SCH ×2 (08:23→21:18)
[2016-11-17] MEDS: HYDROcodone/ACETAMINOPHEN 1 EACH TABLET PO PRN (08:29)
[2016-11-17 08:43] LABS: Hematocrit 26.3 % (42.0-52.0)
[2016-11-17] MEDS: MAGNESIUM CITRATE 300 ML BTL PO SCH ×2 (13:12→17:36)
--- NOTE | 2016-11-17 13:24 | PN ---
Subjective - Date and Time Seen Date: 11/17/16 Time: 13:21 Subjective Narrative: No vomiting. Much better. Helicobacter positive. Objective - Review of Systems Generalized/Overall Review: Reports: No Symptoms Reported EENTM: Reports: No Symptoms Reported Respiratory: Reports: No Symptoms Reported Cardiac: Reports: No Symptoms Reported Abdominal: Reports: No Symptoms Reported Genitourinary Symptoms: Reports: No Symptoms Reported Musculoskeletal Complaints: Reports: No Symptoms Reported Neurological: Reports: No Symptoms Reported Skin: Reports: No Symptoms Reported Endocrine: Reports: No Symptoms Reported Misc: All systems neg except as marked - Vitals Vitals: Last Vital Signs Selected Entries 11/17/16 11:32 Temperature 36.8 C Temperature Oral Source Pulse Rate 92 Respiratory 18 Rate Blood Pressure 134/76 Blood Pressure Supine Position O2 Sat by Pulse 99 Oximetry Oxygen Delivery Room Air Method Oxygen Flow 0 Rate - Abnormal Lab Findings Abnormal Lab Findings: Abnormal Lab Results 11/16/16 11/16/16 11/17/16 Range/Units 14:45 21:01 03:35 Hgb 10.2 L 10.0 L 9.0 L (13.5-18.0) gm/dL Hct 29.8 L 29.5 L 26.7 L (42.0-52.0) % 11/17/16 Range/Units 08:36 Hgb 9.0 L (13.5-18.0) gm/dL Hct 26.3 L (42.0-52.0) % - Exam Constitutional: Present: Alert, Oriented x3, Cooperative, Well developed, Well nourished, No distress ENT Exam: Present: normal ENT inspection Respiratory: Present: normal breath sounds, no respiratory distress Cardiovascular/Chest: Present: regular rate, rhythm, no murmur Abdomen: Present: Normal bowel sounds, soft, nontender, nondistended, no rebound tenderness, no hepatospenomegaly, no masses Extremity: Present: normal inspection, no pedal edema Skin Exam: Present: normal color, warm/dry, no cyanosis Neurologic: Present: alert, oriented x 3 Appearance: Present: appropriate appearance, appropriate insight, neat, no memory impairment Eye contact: Present: cooperative, good eye contact, normal speech Thoughts: Present: normal thought pattern Assessment/Plan - Problems/Diagnosis (1) GI bleed Problem: Acute Qualifiers: GI bleed type/associated pathology: gastric ulcer Qualified Code(s): K25.4 - Chronic or unspecified gastric ulcer with hemorrhage Narrative: DC IV fluids. Get bowels to move. Home soon. Follow labs. (2) Back pain Problem: Acute Qualifiers: Back pain location: low back pain Chronicity: chronic Back pain laterality: unspecified Sciatica presence: unspecified whether sciatica present Qualified Code(s): M54.5 - Low back pain; G89.29 - Other chronic pain (3) Cervical radiculopathy at C6 Problem: Acute (4) Chronic high back pain Problem: Acute (5) Migraine Problem: Acute Qualifiers: Migraine type: without aura Status migrainosus presence: without status migrainosus Intractability: intractable Qualified Code(s): G43.019 - Migraine without aura, intractable, without status migrainosus (6) Anxiety about health Problem: Acute (7) Sedated due to medication Problem: Acute (8) Helicobacter positive gastritis Problem: Acute
[2016-11-17 14:37] LABS: Hemoglobin 8.1 gm/dL (13.5-18.0)
[2016-11-17 14:42] LABS: Hematocrit 23.6 % (42.0-52.0)
[2016-11-17 20:56] LABS: Hematocrit 21.6 % (42.0-52.0); Hemoglobin 7.3 gm/dL (13.5-18.0)
[2016-11-17] MEDS: SIMVASTATIN 40 MG TABLET PO SCH (21:19)
[2016-11-18] MEDS: ONDANSETRON HCL/PF 2 MG/ML VIAL IV SCH ×6 (02:41→22:44)
[2016-11-18 03:02] LABS: Hemoglobin 7.1 gm/dL (13.5-18.0)
[2016-11-18 03:03] LABS: Hematocrit 20.8 % (42.0-52.0)
[2016-11-18 03:06] LABS: Anion Gap 10.9 mmol/L (6.8-13.8); Calcium * 7.7 mg/dL (7.9-10.9); Carbon Dioxide 26.7 mmol/L (24-32.6); Estimated Creat Clear 106.4; Potassium 3.6 mmol/L (3.4-4.6)
[2016-11-18] MEDS: PANTOPRAZOLE SODIUM 40 MG TABLET.EC PO SCH ×2 (06:31→20:29)
[2016-11-18] MEDS: CLARITHROMYCIN 500 MG TABLET PO SCH ×2 (08:40→20:28)
[2016-11-18] MEDS: LISINOPRIL 40 MG TABLET PO SCH ×2 (08:40→20:29)
[2016-11-18] MEDS: amLODIPine BESYLATE 10 MG TABLET PO SCH (08:40)
[2016-11-18] MEDS: SENNOSIDES/DOCUSATE SODIUM 1 TAB TABLET PO SCH ×2 (08:40→20:29)
[2016-11-18] MEDS: BISACODYL 5 MG TABLET.DR PO SCH (08:40)
[2016-11-18] MEDS: MAGNESIUM CITRATE 300 ML BTL PO SCH ×3 (08:41→17:31)
[2016-11-18] MEDS: metroNIDAZOLE 500 MG TABLET PO SCH ×3 (08:41→20:28)
[2016-11-18 09:42] LABS: Hemoglobin 6.8 gm/dL (13.5-18.0)
[2016-11-18 09:43] LABS: Hematocrit 20.1 % (42.0-52.0)
[2016-11-18] MEDS: SIMVASTATIN 40 MG TABLET PO SCH (20:29)
[2016-11-19] MEDS: ONDANSETRON HCL/PF 2 MG/ML VIAL IV SCH ×6 (02:53→21:14)
[2016-11-19] MEDS: HYDROcodone/ACETAMINOPHEN 1 EACH TABLET PO PRN (03:00)
[2016-11-19 05:40] LABS: Mean Cell Volume 95.8 fl (78-100); Mean Corpuscular Hemoglobin 31.7 pg (27-31); Mean Corpuscular Hgb Conc 33.1 g/dl (32-36); Mean Platelet Volume 9.7 fl (6.0-9.5); Neutrophil # 8.9 K/mm3 (1.3-6.0); Neutrophil % 66.4 % (42-75.0); Platelet Count 188 K/mm3 (150-450); Red Blood Count 1.89 M/mm3 (4.7-6.0); Red Cell Distribution Width 14.2 % (11.5-14.0); White Blood Count 13.4 K/mm3 (4.0-10.5)
[2016-11-19 05:50] LABS: Hematocrit 18.1 % (42.0-52.0)
[2016-11-19 05:53] LABS: Anion Gap 11.3 mmol/L (6.8-13.8); BUN/Creatinine Ratio 12.8 (9.0-21.6); Calcium * 8.1 mg/dL (7.9-10.9); Carbon Dioxide 26.2 mmol/L (24-32.6); Estimated Creat Clear 95.5; Potassium 3.5 mmol/L (3.4-4.6)
[2016-11-19] MEDS ORDERED: diphenhydrAMINE HCL 50 MG/ML VIAL IV PRN (06:00)
[2016-11-19] MEDS ORDERED: ACETAMINOPHEN 325 MG TABLET PO PRN (06:00)
[2016-11-19] MEDS ORDERED: FUROSEMIDE 10 MG/ML VIAL IV PRN (06:00)
[2016-11-19] MEDS: metroNIDAZOLE 500 MG TABLET PO SCH ×4 (06:32→21:14)
[2016-11-19] MEDS: MAGNESIUM CITRATE 300 ML BTL PO SCH ×3 (08:07→16:28)
[2016-11-19] MEDS: BISACODYL 5 MG TABLET.DR PO SCH (08:07)
[2016-11-19] MEDS: CLARITHROMYCIN 500 MG TABLET PO SCH ×2 (08:07→21:14)
[2016-11-19] MEDS: amLODIPine BESYLATE 10 MG TABLET PO SCH (08:07)
[2016-11-19] MEDS: PANTOPRAZOLE SODIUM 40 MG TABLET.EC PO SCH ×2 (08:07→21:14)
[2016-11-19] MEDS: LISINOPRIL 40 MG TABLET PO SCH ×2 (08:07→21:13)
[2016-11-19] MEDS: SENNOSIDES/DOCUSATE SODIUM 1 TAB TABLET PO SCH ×2 (08:08→21:14)
--- NOTE | 2016-11-19 18:12 | PN ---
Subjective - Date and Time Seen Date: 11/18/16 Time: 07:00 Subjective Narrative: No vomiting. Better today. Hungry. Objective - Review of Systems Generalized/Overall Review: Reports: No Symptoms Reported EENTM: Reports: No Symptoms Reported Respiratory: Reports: No Symptoms Reported Cardiac: Reports: No Symptoms Reported Abdominal: Reports: Constipation. Denies: Hematemesis Genitourinary Symptoms: Reports: No Symptoms Reported Musculoskeletal Complaints: Reports: No Symptoms Reported Neurological: Reports: No Symptoms Reported Skin: Reports: No Symptoms Reported Endocrine: Reports: No Symptoms Reported Misc: All systems neg except as marked - Vitals Vitals: Last Vital Signs Selected Entries 11/18/16 06:42 Temperature 36.4 C L Temperature Temporal Artery Source Scan Pulse Rate 89 Respiratory 17 Rate Respiratory Normal Depth Blood Pressure 93/66 Blood Pressure Supine Position O2 Sat by Pulse 100 Oximetry Oxygen Delivery Room Air Method - Abnormal Lab Findings Abnormal Lab Findings: Abnormal Lab Results 11/18/16 11/19/16 11/19/16 Range/Units 18:00 05:30 05:30 WBC 13.4 H (4.0-10.5) K/mm3 RBC 1.89 L (4.7-6.0) M/mm3 Hgb 6.0 L* (13.5-18.0) gm/dL Hct 18.1 L* (42.0-52.0) % MCH 31.7 H (27-31) pg RDW 14.2 H (11.5-14.0) % MPV 9.7 H (6.0-9.5) fl Immature Gran % (Auto) 0.70 H (0.001-0.429) % Immature Gran # (Auto) 0.10 H (0.000-0.0310) K/mm3 Monocytes % 9.2 H (0.0-9) % Neutrophils # 8.9 H (1.3-6.0) K/mm3 Monocytes # 1.2 H (0.0-1.0) k/mm3 Plasma Sodium 143 H (130-142) mmol/L Chloride 108 H (97-106) mmol/L Random Glucose 145 H D (70-110) mg/dL Stool Occult Blood Positive H Crossmatch 11/19/16 11/19/16 Range/Units 05:30 16:00 WBC (4.0-10.5) K/mm3 RBC (4.7-6.0) M/mm3 Hgb (13.5-18.0) gm/dL Hct (42.0-52.0) % MCH (27-31) pg RDW (11.5-14.0) % MPV (6.0-9.5) fl Immature Gran % (Auto) (0.001-0.429) % Immature Gran # (Auto) (0.000-0.0310) K/mm3 Monocytes % (0.0-9) % Neutrophils # (1.3-6.0) K/mm3 Monocytes # (0.0-1.0) k/mm3 Plasma Sodium (130-142) mmol/L Chloride (97-106) mmol/L Random Glucose (70-110) mg/dL Stool Occult Blood Positive H Crossmatch See Detail - Exam Constitutional: Present: Alert, Oriented x3, Cooperative, Well developed, Well nourished, No distress ENT Exam: Present: normal ENT inspection, hearing grossly normal Neck: Present: normal inspection Respiratory: Present: normal breath sounds, no respiratory distress Cardiovascular/Chest: Present: normal peripheral pulses, regular rate, rhythm, no chest tenderness Abdomen: Present: Normal bowel sounds, soft, nontender, nondistended, no rebound tenderness Extremity: Present: normal inspection, no pedal edema Skin Exam: Present: normal color, warm/dry, no cyanosis Neurologic: Present: alert, oriented x 3 Appearance: Present: appropriate appearance, appropriate insight, neat, no memory impairment Eye contact: Present: cooperative, good eye contact, normal speech Thoughts: Present: normal thought pattern Assessment/Plan Plan Narrative: 7.1 hgb probably fluid shift. Will monitor very closely, and advance diet. - Problems/Diagnosis (1) GI bleed Problem: Acute Qualifiers: GI bleed type/associated pathology: gastric ulcer Qualified Code(s): K25.4 - Chronic or unspecified gastric ulcer with hemorrhage (2) Back pain Problem: Acute Qualifiers: Back pain location: low back pain Chronicity: chronic Back pain laterality: unspecified Sciatica presence: unspecified whether sciatica present Qualified Code(s): M54.5 - Low back pain; G89.29 - Other chronic pain (3) Cervical radiculopathy at C6 Problem: Acute (4) Chronic high back pain Problem: Acute (5) Migraine Problem: Acute Qualifiers: Migraine type: without aura Status migrainosus presence: without status migrainosus Intractability: intractable Qualified Code(s): G43.019 - Migraine without aura, intractable, without status migrainosus (6) Anxiety about health Problem: Acute (7) Sedated due to medication Problem: Acute (8) Helicobacter positive gastritis Problem: Acute
--- NOTE | 2016-11-19 18:17 | PN ---
Subjective - Date and Time Seen Date: 11/19/16 Time: 07:20 Subjective Narrative: Feels fine, but hgb dropped further. Discussed with Dr. De Leon and patient. have opted for observation and blood tranfusion for now.. Objective - Review of Systems Generalized/Overall Review: Reports: No Symptoms Reported EENTM: Reports: No Symptoms Reported Respiratory: Reports: No Symptoms Reported Cardiac: Reports: No Symptoms Reported Abdominal: Reports: No Symptoms Reported Genitourinary Symptoms: Reports: No Symptoms Reported Musculoskeletal Complaints: Reports: No Symptoms Reported Neurological: Reports: No Symptoms Reported Skin: Reports: No Symptoms Reported Endocrine: Reports: No Symptoms Reported Misc: All systems neg except as marked - Vitals Vitals: Last Vital Signs Selected Entries 11/18/16 06:42 Temperature 36.4 C L Temperature Temporal Artery Source Scan Pulse Rate 89 Respiratory 17 Rate Respiratory Normal Depth Blood Pressure 93/66 Blood Pressure Supine Position O2 Sat by Pulse 100 Oximetry Oxygen Delivery Room Air Method - Abnormal Lab Findings Abnormal Lab Findings: Abnormal Lab Results 11/18/16 11/19/16 11/19/16 Range/Units 18:00 05:30 05:30 WBC 13.4 H (4.0-10.5) K/mm3 RBC 1.89 L (4.7-6.0) M/mm3 Hgb 6.0 L* (13.5-18.0) gm/dL Hct 18.1 L* (42.0-52.0) % MCH 31.7 H (27-31) pg RDW 14.2 H (11.5-14.0) % MPV 9.7 H (6.0-9.5) fl Immature Gran % (Auto) 0.70 H (0.001-0.429) % Immature Gran # (Auto) 0.10 H (0.000-0.0310) K/mm3 Monocytes % 9.2 H (0.0-9) % Neutrophils # 8.9 H (1.3-6.0) K/mm3 Monocytes # 1.2 H (0.0-1.0) k/mm3 Plasma Sodium 143 H (130-142) mmol/L Chloride 108 H (97-106) mmol/L Random Glucose 145 H D (70-110) mg/dL Stool Occult Blood Positive H Crossmatch 11/19/16 11/19/16 Range/Units 05:30 16:00 WBC (4.0-10.5) K/mm3 RBC (4.7-6.0) M/mm3 Hgb (13.5-18.0) gm/dL Hct (42.0-52.0) % MCH (27-31) pg RDW (11.5-14.0) % MPV (6.0-9.5) fl Immature Gran % (Auto) (0.001-0.429) % Immature Gran # (Auto) (0.000-0.0310) K/mm3 Monocytes % (0.0-9) % Neutrophils # (1.3-6.0) K/mm3 Monocytes # (0.0-1.0) k/mm3 Plasma Sodium (130-142) mmol/L Chloride (97-106) mmol/L Random Glucose (70-110) mg/dL Stool Occult Blood Positive H Crossmatch See Detail - Exam Constitutional: Present: Alert, Oriented x3, Cooperative, Well developed, Well nourished ENT Exam: Present: normal ENT inspection Neck: Present: normal inspection Respiratory: Present: normal breath sounds, no respiratory distress Cardiovascular/Chest: Present: regular rate, rhythm, no murmur Abdomen: Present: Normal bowel sounds, soft, nontender, nondistended, no rebound tenderness, no hepatospenomegaly, no masses Extremity: Present: normal inspection, no pedal edema Skin Exam: Present: normal color, warm/dry, no cyanosis Neurologic: Present: alert, oriented x 3 Appearance: Present: appropriate appearance, appropriate insight, neat Eye contact: Present: cooperative, good eye contact, normal speech Thoughts: Present: normal thought pattern Assessment/Plan Plan Narrative: 3 units blood. monitor. continue current treatment. - Problems/Diagnosis (1) GI bleed Problem: Acute Qualifiers: GI bleed type/associated pathology: gastric ulcer Qualified Code(s): K25.4 - Chronic or unspecified gastric ulcer with hemorrhage (2) Back pain Problem: Acute Qualifiers: Back pain location: low back pain Chronicity: chronic Back pain laterality: unspecified Sciatica presence: unspecified whether sciatica present Qualified Code(s): M54.5 - Low back pain; G89.29 - Other chronic pain (3) Cervical radiculopathy at C6 Problem: Acute (4) Chronic high back pain Problem: Acute (5) Migraine Problem: Acute Qualifiers: Migraine type: without aura Status migrainosus presence: without status migrainosus Intractability: intractable Qualified Code(s): G43.019 - Migraine without aura, intractable, without status migrainosus (6) Anxiety about health Problem: Acute (7) Sedated due to medication Problem: Acute (8) Helicobacter positive gastritis Problem: Acute
[2016-11-19] MEDS: SIMVASTATIN 40 MG TABLET PO SCH (21:13)
[2016-11-19 22:08] LABS: Hematocrit 25.6 % (42.0-52.0); Hemoglobin 8.8 gm/dL (13.5-18.0)
[2016-11-20] MEDS: ONDANSETRON HCL/PF 2 MG/ML VIAL IV SCH ×3 (01:38→09:49)
[2016-11-20 06:15] LABS: Hematocrit 26.5 % (42.0-52.0); Mean Cell Volume 91.4 fl (78-100); Mean Platelet Volume 9.8 fl (6.0-9.5); Platelet Count 241 K/mm3 (150-450); Red Cell Distribution Width 15.3 % (11.5-14.0)
[2016-11-20 06:16] LABS: Anion Gap 12.1 mmol/L (6.8-13.8); BUN/Creatinine Ratio 11.5 (9.0-21.6); Calcium * 8.2 mg/dL (7.9-10.9); Carbon Dioxide 27.6 mmol/L (24-32.6); Estimated Creat Clear 91.6; Potassium 3.7 mmol/L (3.4-4.6)
[2016-11-20 06:17] LABS: Total Cells Counted 100
[2016-11-20 06:32] LABS: Anisocytosis 2+; Atypical (Reactive) Lymph 3 % (0-2); Eosinophil 2 % (0-3); Lymphocyte 22 % (20-51); Monocyte 3 % (0-9); Neutrophil 70 % (42-75); Neutrophil # 12.6 K/mm3 (1.3-6.0)
[2016-11-20 06:33] LABS: Dohle Bodies 2+; Hypochromia 2+; Platelet Estimate Normal (NORMAL); Target Cells 1+
[2016-11-20] MEDS: PANTOPRAZOLE SODIUM 40 MG TABLET.EC PO SCH (06:59)
[2016-11-20] MEDS: metroNIDAZOLE 500 MG TABLET PO SCH (06:59)
[2016-11-20] MEDS: HYDROcodone/ACETAMINOPHEN 1 EACH TABLET PO PRN (07:39)
--- NOTE | 2016-11-20 08:19 | PN ---
Subjective - Date and Time Seen Date: 11/20/16 Time: 08:15 Subjective Narrative: Pt had onset of epigastric pain around midnight. Took norco that didn't help. Hgb was 6 yesterday. Transfused. Hgb now 9 and stable. Objective Objective Narrative: ABD: tender in epigastrium. No peritoneal signs. - Vitals Vitals: Last Vital Signs Temp 36.9 C 11/20/16 06:28 Pulse 84 11/20/16 06:54 Resp 18 11/20/16 06:28 BP 133/80 11/20/16 06:28 Pulse Ox 95 11/20/16 06:28 - Abnormal Lab Findings Abnormal Lab Findings: Abnormal Lab Results 11/19/16 11/19/16 11/19/16 Range/Units 05:30 16:00 22:05 WBC (4.0-10.5) K/mm3 RBC (4.7-6.0) M/mm3 Hgb 8.8 L (13.5-18.0) gm/dL Hct 25.6 L (42.0-52.0) % RDW (11.5-14.0) % MPV (6.0-9.5) fl Neutrophils # (Manual) (1.3-6.0) K/mm3 Lymphocytes # (Manual) (1.5-3.5) k/mm3 Atypic/Reactive Lymphs (0-2) % Stool Occult Blood Positive H Crossmatch See Detail 11/20/16 Range/Units 06:01 WBC 18.0 H D (4.0-10.5) K/mm3 RBC 2.90 L (4.7-6.0) M/mm3 Hgb 9.0 L (13.5-18.0) gm/dL Hct 26.5 L (42.0-52.0) % RDW 15.3 H (11.5-14.0) % MPV 9.8 H (6.0-9.5) fl Neutrophils # (Manual) 12.6 H (1.3-6.0) K/mm3 Lymphocytes # (Manual) 4.0 H (1.5-3.5) k/mm3 Atypic/Reactive Lymphs 3 H (0-2) % Stool Occult Blood Crossmatch Assessment/Plan Plan Narrative: A: Upper GI bleed with ulcer P: Case d/w Dr. Bonner. Pt likely has ongoing slow bleed rather than equilibrating from his original blood loss. Recommend transfer to a higher level of care where advanced endoscopic endotherapy may benefit this patient. - Problems/Diagnosis (1) GI bleed Problem: Acute Qualifiers: GI bleed type/associated pathology: gastric ulcer Qualified Code(s): K25.4 - Chronic or unspecified gastric ulcer with hemorrhage
[2016-11-20] MEDS: LISINOPRIL 40 MG TABLET PO SCH (09:46)
[2016-11-20] MEDS: CLARITHROMYCIN 500 MG TABLET PO SCH (09:46)
[2016-11-20] MEDS: SENNOSIDES/DOCUSATE SODIUM 1 TAB TABLET PO SCH (09:47)
[2016-11-20] MEDS: BISACODYL 5 MG TABLET.DR PO SCH (09:47)
[2016-11-20] MEDS: amLODIPine BESYLATE 10 MG TABLET PO SCH (09:47)
[2016-11-20] MEDS: MAGNESIUM CITRATE 300 ML BTL PO SCH ×2 (09:48→12:07)
[2016-11-20 10:53] VITALS: BP 129/67
--- NOTE | 2016-11-20 14:34 | DS ---
(1) GI bleed Problem: Acute Qualifiers: GI bleed type/associated pathology: gastric ulcer Qualified Code(s): K25.4 - Chronic or unspecified gastric ulcer with hemorrhage (2) Back pain Problem: Acute Qualifiers: Back pain location: low back pain Chronicity: chronic Back pain laterality: unspecified Sciatica presence: unspecified whether sciatica present Qualified Code(s): M54.5 - Low back pain; G89.29 - Other chronic pain (3) Cervical radiculopathy at C6 Problem: Acute (4) Chronic high back pain Problem: Acute (5) Migraine Problem: Acute Qualifiers: Migraine type: without aura Status migrainosus presence: without status migrainosus Intractability: intractable Qualified Code(s): G43.019 - Migraine without aura, intractable, without status migrainosus (6) Anxiety about health Problem: Acute (7) Sedated due to medication Problem: Acute (8) Helicobacter positive gastritis Problem: Acute Description of Stay: Transfused 2 units prbc's at admission and 1 unit FFP. Infused PPI. GI tract rested. Seemed to improved. EGD initially showed an erosion with clot, not actively bleeding, at the GE junction. He was stable. Vitals were stable. We continued to monitore. Hgb slowly drifted down. Ultimately, he was Helicobacter biopsy positive. I treated him with triple antibiotics. I advanced his diet. His hgb eventually reached 6, at which point, I transfused him 3 more units of prbcs, but he remained clinically stable. He had black hemoccult positive stools, but he also was on iron. Just before midnight last night, he developed 6/10 epigastric pain which persisted through today. His epigastrium is tender, but not surgical. His vitals are stable. His hgb is stable at 9, but his wbc is 10. Recently he had NO abdominal pain or tenderness until last night. Dr. Knott and I discussed the situation, and we both agree at the present time Mr. Guerrero requires a higher level of care , requiring a gastoenterologist, for which reason I called [facility] in [place], [place]. They graciously agreed to accept our patient by ambulance transfer. Procedures Performed: see notes below - EGD per Dr. De Leon Discharge Disposition: Other HealthCare facility Disposition: Other health care facility Condition: Stable Discharge Activity: Other Discharge Diet: General/regular food Problem Oriented Discharge Instructions to Patient/Family: Gastrointestinal Bleeding, [id number] Additional Patient Instructions (free text): Fax discharge information to patient's PCP, Amber Hoff. Fax: . If this number is busy, fax to [phone]. Office phone number for f/u appointment is . recommending appointment with Pain Clinic. Please discuss with your PCP regarding this. Unable to get an appointment locally d/t insurance.
== END 2016-11-20 13:00 | disposition short-term general hospital (02) | DRG 378 ==
LOC: ER 08:33 → MS 11:51 → OBSVTOIN 11:51 → INTOOBSV 11:51
PROVIDERS: ADMIT Allergy & Immunology; ATTEND Allergy & Immunology
PROC: 0DB68ZX Excision of Stomach, Via Natural or Artificial Opening Endoscopic, Diagnostic (ICD-10-PCS; 2016-11-15)
PROC: 30233N1 Transfusion of Nonautologous Red Blood Cells into Peripheral Vein, Percutaneous Approach (ICD-10-PCS; principal; 2016-11-15 13:00)
DX: K25.0 Acute gastric ulcer with hemorrhage (principal); A04.8 Other specified bacterial intestinal infections; I10 Essential (primary) hypertension; E78.5 Hyperlipidemia, unspecified; J44.9 Chronic obstructive pulmonary disease, unspecified; M54.12 Radiculopathy, cervical region; M54.5 Low back pain; F06.4 Anxiety disorder due to known physiological condition; F17.210 Nicotine dependence, cigarettes, uncomplicated; Z79.82 Long term (current) use of aspirin
CPT/HCPCS: 36415; 36430; 43239; 74020; 80048; 80053; 81001; 82272; 85007; 85014; 85018; 85025; 85610; 85730; 86850; 86900; 87081; 93005; 94660; 96365; 99291; J2405; P9016; P9060